=== PATIENT | male | born 1985 | race African-American/Black ===

== ENCOUNTER 2017-11-18 11:47 | Emergency (ER) | payer OTHER ==
[2017-11-18 12:54] LABS: BASO % 0.3 % (0.0-1.0); EOS # 0.1 10^3/uL (0.0-0.50); EOS % 1.1 % (0.0-3.0); HEMATOCRIT 39.2 % (42.0-52.0); HEMOGLOBIN 13.6 g/dl (13.5-17.5); IMMATURE GRANULOCYTE % 0.4 % (0-3.0); LYMPH # 1.8 10^3/uL (1.5-4.5); LYMPH % 24.4 % (24.0-44.0); MEAN CORPUSCULAR HEMOGLOBIN 30.1 pg (27.0-33.0); MEAN CORPUSCULAR HGB CONC 34.7 g/dl (32.0-36.5); MEAN CORPUSCULAR VOLUME 86.7 fl (80.0-96.0); MONO # 0.6 10^3/uL (0.0-0.8); MONO % 8.3 % (0.0-5.0); NEUTROPHILS # 4.7 10^3/uL (1.8-7.7); NEUTROPHILS % 65.5 % (36.0-66.0); PLATELET COUNT, AUTOMATED 257 10^3/uL (150-450); RED BLOOD COUNT 4.52 10^6/uL (4.30-6.10); RED CELL DISTRIBUTION WIDTH 12.4 % (11.5-14.5); WHITE BLOOD COUNT 7.2 10^3/uL (4.0-10.0)
[2017-11-18 13:05] LABS: KETONE, URINE AUTO RFX NEGATIVE (NEGATIVE); NITRITE, URINE AUTO RFX NEGATIVE (NEGATIVE); RBC, URINE AUTO RFX 5 /HPF (0-3); SPECIFIC GRAVITY UR AUTO RFX 1.024 (1.002-1.035); SQUAM EPITHELIAL CELL UR AURFX 0 /HPF (0-6); WBC, URINE AUTO RFX 6 /HPF (0-3)
[2017-11-18 13:12] LABS: LEUKOCYTE ESTERASE UR AUTO RFX TRACE (NEGATIVE)
[2017-11-18 13:15] LABS: ALBUMIN 3.7 GM/DL (3.2-5.2); ALBUMIN/GLOBULIN RATIO 0.95 (1.00-1.93); ALKALINE PHOSPHATASE 64 U/L (45-117); ALT/SGPT 44 U/L (12-78); ANION GAP 6 MEQ/L (8-16); AST/SGOT 24 U/L (7-37); BILIRUBIN,DIRECT < 0.1 MG/DL (0.0-0.2); BILIRUBIN,TOTAL 0.2 MG/DL (0.2-1.0); BLOOD UREA NITROGEN 12 MG/DL (7-18); CALCIUM LEVEL 9.1 MG/DL (8.5-10.1); CARBON DIOXIDE LEVEL 27 MEQ/L (21-32); CHLORIDE LEVEL 106 MEQ/L (98-107); CREATININE FOR GFR 1.31 MG/DL (0.70-1.30); GLOMERULAR FILTRATION RATE > 60.0 (>60); GLUCOSE, FASTING 97 MG/DL (70-100); LIPASE 77 U/L (73-393); SODIUM LEVEL 139 MEQ/L (136-145); TOTAL PROTEIN 7.6 GM/DL (6.4-8.2)
[2017-11-18] MEDS: MORPHINE 4 MG/ML 1ML VIAL/SYRINGE (J2270) IV (14:07)
[2017-11-18] MEDS: NS 1,000 ML IV (14:07)
[2017-11-18] MEDS: ONDANSETRON 4MG/2ML VIAL (J2405) IV (14:07)
[2017-11-18] MEDS ORDERED: ISOVUE-370 76% 100ML VIAL (Q9967) As Ordered (14:33)
== END 2017-11-18 16:26 | disposition home or self-care (01) ==
LOC: M ED 11:47
DX: K56.7 Ileus, unspecified (principal); F33.9 Major depressive disorder, recurrent, unspecified; Z79.899 Other long term (current) drug therapy
CPT/HCPCS: J2270

== ENCOUNTER → 2018-04-11 | Outpatient (CLI) | payer OTHER ==
[~2018-04-11] MED LIST: ACET500T15 PO; PROZ10CA7 PO; ZOFR4TAB14 PO
--- NOTE | 2018-04-13 11:27 | SLEEPCENT ---
DATE OF STUDY: 04/11/2018 ORDERED BY: LINDSEY Carlos Nocturnal polysomnography was performed for evaluation of sleep physiology in this patient with a history of excessive somnolence and nonrestorative sleep. 8 hours and 20 minutes of data were reviewed. There were 480 minutes of sleep identified. Sleep latency was normal at 8 minutes. REM sleep was delayed at 224 minutes. Sleep architecture was fair with some fragmentation. There were three REM cycles noted. Overall sleep efficiency was 96.9%. The patient's electrocardiogram showed a sinus rhythm with an average heart rate of 58 beats per minute. EEG showed reasonably normal waveforms for awake and sleep. There were 100 respiratory events identified of 10 seconds in duration or greater for an apnea-hypopnea index of 12.5. The events were not exclusive to sleep. They were obstructive in nature, more frequent but not exclusive to supine posture. Arousals from respiratory events occurred 5.8 times per hour and oxygen desaturations were seen into the 70s. The oxygen desaturation index is 3.3. There was some limb activity noted, but limb movement arousals occurred only five times per hour. IMPRESSION: Obstructive sleep apnea syndrome (G47.33). Apnea-hypopnea index 12.5. RECOMMENDATION: The patient should be encouraged to return to the sleep disorder center for pressure therapy. In the interim, alcohol and sedative avoidance should be practiced and caution exercised during the operation of motor vehicles. cc: Jayshree Stevens NP
== END ==
LOC: M SLEEP 20:00
PROVIDERS: ATTEND Nurse Practitioner Family
DX: G47.33 Obstructive sleep apnea (adult) (pediatric) (principal)

== ENCOUNTER → 2018-06-03 | Outpatient (CLI) | payer OTHER ==
--- NOTE | 2018-06-09 06:45 | SLEEPCENT ---
DATE OF PROCEDURE: 06/03/2018 ORDERED BY: Madisyn Appiah. Nocturnal polysomnography was performed for the titration of pressure therapy in this patient with obstructive sleep apnea syndrome. Apnea-hypopnea index 12.5. For testing, the patient was fit with a [employer] full face mask of medium size, 4 cm of water pressure were applied to the circuit and the lights were extinguished. 7 hours and 55 minutes data were reviewed. There were 416 minutes of sleep identified. Sleep latency was normal at 6.5 minutes. REM latency was mildly delayed at 115 minutes. Sleep architecture was good with four REM cycles noted. Overall sleep efficiency was 89.1%. The electrocardiogram showed a sinus rhythm with an average heart rate of 54 beats per minute. EEG showed normal waveforms for awake and sleep. Respiratory events were best palliated with CPAP at a pressure of +12 with minimal limb activity noted. Limb movement arousal index was 6.3. IMPRESSION: Obstructive sleep apnea syndrome (G47.33). RECOMMENDATIONS: Nightly use of pressure therapy 12 cm of water.
== END ==
LOC: M SLEEP 19:51
PROVIDERS: ATTEND Nurse Practitioner Family
DX: G47.33 Obstructive sleep apnea (adult) (pediatric) (principal)